=== PATIENT | male | born 1965 | race Caucasian/White ===

== ENCOUNTER → 2020-07-21 | Outpatient (CLI) | payer OTHER ==
[~2020-07-21] MED LIST: BACLOFEN20 MG PO; CELEXA40 MG PO; COLACE 100MG C100 MG PO; CYMBALTA60 MG PO; DITROPAN 5 MG TA5 MG PO; DRISDOL50000 UNIT PO; FLONASE 0.05% N16 GM; LIPITOR TAB 2020 MG PO; LYRICA200 MG PO; PRILOSEC40 MG PO; ROCEPHIN 22 G/50 ML IV; SINGULAIR10 MG PO; SPIRIVA18 MCG INH; SYMBICORT 16010.2 GM INH; TOPROL XL50 MG PO; ULTRACET TABLE1 EACH PO; VIBRAMYCIN100 MG PO
== END ==
LOC: WCC 14:30
DX: Z53.9 Procedure and treatment not carried out, unspecified reason (principal)

== ENCOUNTER → 2020-08-22 | Outpatient (CLI) | payer OTHER | LOC: WCC 09:00 | PROC: 0JBR0ZZ Excision of Left Foot Subcutaneous Tissue and Fascia, Open Approach (ICD-10-PCS; principal; 2020-08-22) | PROC: 0JBP0ZZ Excision of Left Lower Leg Subcutaneous Tissue and Fascia, Open Approach (ICD-10-PCS; 2020-08-22) | PROC: 0JBQ0ZZ Excision of Right Foot Subcutaneous Tissue and Fascia, Open Approach (ICD-10-PCS; 2020-08-22) | DX: I96 Gangrene, not elsewhere classified (principal); L89.622 Pressure ulcer of left heel, stage 2; L89.612 Pressure ulcer of right heel, stage 2; L89.892 Pressure ulcer of other site, stage 2; J44.9 Chronic obstructive pulmonary disease, unspecified; I11.0 Hypertensive heart disease with heart failure; I50.9 Heart failure, unspecified; I25.10 Atherosclerotic heart disease of native coronary artery without angina pectoris; G62.9 Polyneuropathy, unspecified; G82.20 Paraplegia, unspecified; Z88.5 Allergy status to narcotic agent; Z79.899 Other long term (current) drug therapy ==

== ENCOUNTER → 2020-09-06 | Outpatient (CLI) | payer OTHER | LOC: WCC 10:00 | PROC: 0JBR0ZZ Excision of Left Foot Subcutaneous Tissue and Fascia, Open Approach (ICD-10-PCS; principal; 2020-09-06) | PROC: 0JBQ0ZZ Excision of Right Foot Subcutaneous Tissue and Fascia, Open Approach (ICD-10-PCS; 2020-09-06) | DX: I96 Gangrene, not elsewhere classified (principal); L89.622 Pressure ulcer of left heel, stage 2; L89.612 Pressure ulcer of right heel, stage 2; L89.892 Pressure ulcer of other site, stage 2; G82.21 Paraplegia, complete; K59.2 Neurogenic bowel, not elsewhere classified; R15.9 Full incontinence of feces; R73.03 Prediabetes; J44.9 Chronic obstructive pulmonary disease, unspecified; I11.0 Hypertensive heart disease with heart failure; I50.9 Heart failure, unspecified; G62.9 Polyneuropathy, unspecified; Z74.1 Need for assistance with personal care ==

== ENCOUNTER 2021-03-23 21:46 | Observation (INO) | payer OTHER ==
[~2021-03-23] VITALS: Ht 180.3 cm; Wt 117.3 kg
[2021-03-23 23:27] LABS: RED BLOOD COUNT 3.22 M/UL (4.20-5.50); WHITE BLOOD COUNT 7.6 K/UL (4.5-11.0)
[2021-03-23 23:58] LABS: BUN/CREATININE RATIO 11 (0-10)
[2021-03-25 04:39] LABS: HEMOGLOBIN 7.9 gm/dl (14.0-17.5); WHITE BLOOD COUNT 5.7 K/UL (4.5-11.0)
[2021-03-25 04:41] LABS: RED BLOOD COUNT 2.79 M/UL (4.20-5.50)
[2021-03-25 05:02] LABS: BUN/CREATININE RATIO 9 (0-10)
[2021-03-25] MEDS ORDERED: FLUCONAZOLE200 MG PO (12:12)
== END 2021-03-25 17:43 | disposition home or self-care (01) ==
LOC: ER1 21:46 → PROG CARE 03-24 00:54 → CDU 03-24 00:54 → PROG CARE 03-24 04:00 → MED SURG 4 03-25 01:37
PROVIDERS: Preventive Medicine Occupational Medicine; ADMIT Internal Medicine
DX: M86.69 Other chronic osteomyelitis, multiple sites (principal); L89.624 Pressure ulcer of left heel, stage 4; L89.614 Pressure ulcer of right heel, stage 4; L89.154 Pressure ulcer of sacral region, stage 4; L89.304 Pressure ulcer of unspecified buttock, stage 4; N39.0 Urinary tract infection, site not specified; U07.1 COVID-19; E87.2 Acidosis; R79.89 Other specified abnormal findings of blood chemistry; G82.20 Paraplegia, unspecified; D64.9 Anemia, unspecified; G89.29 Other chronic pain; F11.90 Opioid use, unspecified, uncomplicated; I10 Essential (primary) hypertension; F32.9 Major depressive disorder, single episode, unspecified; F41.9 Anxiety disorder, unspecified; Z74.01 Bed confinement status; Z91.19 Patient's noncompliance with other medical treatment and regimen; Z88.5 Allergy status to narcotic agent; Z79.2 Long term (current) use of antibiotics; Z79.899 Other long term (current) drug therapy
CPT/HCPCS: 36415; 36600; 70450; 71045; 76705; 80053; 80076; 80202; 80307; 81001; 82009; 82550; 82553; 82607; 82746; 82803; 83605; 83690; 83735; 83874; 84100; 84439; 84443; 84484; 85025; 85045; 85610; 85652; 85730; 86140; 87070; 87086; 87205; 93005; 96365; 99285; G0378; G0480; J0692; J1450; J1650; J2270; J3370; J7070; U0002

== ENCOUNTER → 2021-05-23 | Outpatient (CLI) | payer OTHER ==
[~2021-05-23] MED LIST changes: +FLUCONAZOLE200 MG PO
== END ==
LOC: WCC 08:25
DX: L89.899 Pressure ulcer of other site, unspecified stage (principal); L89.229 Pressure ulcer of left hip, unspecified stage; I73.9 Peripheral vascular disease, unspecified; R15.9 Full incontinence of feces; K59.2 Neurogenic bowel, not elsewhere classified; R60.1 Generalized edema; R73.03 Prediabetes; G82.21 Paraplegia, complete; J44.9 Chronic obstructive pulmonary disease, unspecified; I11.0 Hypertensive heart disease with heart failure; I50.9 Heart failure, unspecified; I25.10 Atherosclerotic heart disease of native coronary artery without angina pectoris; Z91.19 Patient's noncompliance with other medical treatment and regimen; Z74.1 Need for assistance with personal care; Z88.5 Allergy status to narcotic agent
CPT/HCPCS: 87070; 87077; 87186; 87205

== ENCOUNTER 2021-06-23 23:48 | Emergency (ER) | payer OTHER ==
[2021-06-24 05:09] LABS: HEMOGLOBIN 12.2 gm/dl (14.0-17.5); RED BLOOD COUNT 3.85 M/UL (4.20-5.50); WHITE BLOOD COUNT 9.9 K/UL (4.5-11.0)
[2021-06-24 06:46] LABS: BUN/CREATININE RATIO 16 (0-10)
[2021-06-24] MEDS ORDERED: CEFDINIR300 MG PO (09:42)
== END 2021-06-24 10:16 | disposition home or self-care (01) ==
LOC: ER1 23:48
PROVIDERS: Physician Assistant
DX: R07.89 Other chest pain (principal); E11.9 Type 2 diabetes mellitus without complications; I10 Essential (primary) hypertension; Z88.5 Allergy status to narcotic agent; D64.9 Anemia, unspecified
CPT/HCPCS: 71045; 80053; 81001; 82550; 82553; 83874; 84484; 85025; 85379; 87077; 87086; 87186; 93005; 96374; 99285; J0696; Q9967